=== PATIENT | male | born 1970 | race Hispanic/Latino ===

== ENCOUNTER 2016-06-03 03:47 | Emergency (ER) ==
--- NOTE | 2016-06-03 03:52 | PROVIDER DOCUMENTATION ---
HPI-Respiratory General - General Stated Complaint: SOB,B/P ISSUES Time Seen by Provider: 06/03/16 03:50 Source: patient Unable to obtain history due to:: urgency Allergies/Adverse Reactions: Patient Allergies Allergy/AdvReac Type Severity Reaction Status Date / Time No Known Allergies Allergy Verified 06/03/16 03:58 Home Medications: Home Medication List Medication Instructions Recorded Confirmed Last Taken Type Prednisone 20 mg PO BID #10 tablet 06/03/16 Unknown Rx Sulfamethoxazole/Trimethoprim 2 each PO BID #40 tablet 06/03/16 Unknown Rx [Bactrim Ds Tablet] - History of Present Illness-Resp Quality of Pain: reports: aching Severity in ED: reports: mild Onset/Duration: reports: just prior to arrival Timing: reports: improving Context: reports: out of meds Exposure: reports: unknown cause Cough Quality/Degree: reports: mild Current Respiratory Medication Therapy: Initiated see nurses note Modifying Factors: improves with: nothing Similar Symptoms Previously?: Yes Recently seen or treated by another doctor?: Yes Review of Systems - Adult - REVIEW OF SYSTEMS - ADULT Constitutional: reports: no symptoms reported Eyes: reports: no symptoms reported Ears, Nose, Mouth & Throat: reports: no symptoms reported Cardiovascular: reports: no symptoms reported Respiratory: reports: no symptoms reported Gastrointestinal: reports: no symptoms reported Genitourinary: reports: no symptoms reported Musculoskeletal: reports: no symptoms reported Integumentary: reports: no symptoms reported Neurological: reports: no symptoms reported Psychiatric: reports: no symptoms reported Endocrine: reports: no symptoms reported Hematologic/Lymphatic: reports: no symptoms reported Allergic/Immunologic: reports: no symptoms reported All Other Systems: Reviewed and Negative Past History - Adult - PAST MEDICAL HISTORY-ADULT Review of Records: reports: Old Records Reviewed, Nursing Assessment Review, Medications Reviewed, Social history reviewed & non-contributory. Major Childhood Illnesses: reports: denies history Cardiovascular: reports: denies history Respiratory: reports: denies history Gastrointestinal: reports: denies history Obstetrical/Gynecological: reports: denies history Genitourinary: reports: denies history Musculoskeletal: reports: denies history Neurological: reports: denies history Endocrine/Immune: reports: denies history Other Conditions: reports: denies history - FAMILY HISTORY Family History: reviewed, not pertinent Physical Exam-General - PHYSICAL EXAM-ADULT Initial Vital Signs Reviewed: Yes - CONSTITUTIONAL General Appearance: appears well - EYES Eyes: PERRL/EOMI - HEAD, EARS, NOSE, MOUTH & THROAT HENMT: normocephalic/atraumatic - NECK Neck: non-tender - RESPIRATORY Respiratory: chest non-tender - CARDIOVASCULAR Cardiovascular: normal peripheral pulses - GASTROINTESTINAL (ABDOMEN) Abdominal Exam: normal bowel sounds - GENITOURINARY Male Genitalia: deferred Rectal Exam: deferred Hemoccult Exam: deferred - LYMPHATIC Lymphatic: no adenopathy - MUSCULOSKELETAL Back Exam: normal inspection Extremity: normal range of motion - SKIN Integumentary: normal color - 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
[2016-06-03 04:08] LABS: MANUAL DIFF NEEDED? NO
[2016-06-03] MEDS ORDERED: LABETALOL IV ONE (04:09)
[2016-06-03 04:27] LABS: BASO% 0.2 % (0.0-0.8); EOS# 0.35 X1000 (0.0-0.7); EOS% 5.3 % (0.0-10.0); HEMATOCRIT 43.4 % (42.0-52.0); HEMOGLOBIN 15.5 g/dL (14.0-18.0); IMM GRAN# 0.01 X1000 (0.0-0.04); IMM GRAN% 0.2 % (0.0-0.5); LYMPH# 3.05 X1000 (1.2-3.4); LYMPH% 45.8 % (20.5-51.1); MCH 30.3 PG (27-31); MCHC 35.7 g/dL (33-37); MCV 84.9 FL (81-99); MONO# 0.54 X1000 (0.11-0.59); MONO% 8.1 % (1.7-9.3); MPV 8.8 FL (7.4-10.4); NEUT% 40.4 % (42.2-75.2); PLT 243 X1000 (130-400); RBC 5.11 XMIL (4.7-6.1)
[2016-06-03 04:34] LABS: AGAP 16; ALBUMIN 4.6 g/dL (3.5-5.0); ALKALINE PHOSPHATASE 49 U/L (32-122); BUN 11 mg/dL (8-22); CALCIUM 9.4 mg/dL (8.8-10.2); CHLORIDE 101 mmol/L (98-107); CK PROFILE 116 U/L (24-204); COSMO 276; GOT 18 U/L (10-34); GPT 26 U/L (10-44); POTASSIUM 3.4 mmol/L (3.5-5.1); SODIUM 138 mmol/L (136-145); TCO2 21 mmol/L (25-35); TOTAL PROTEIN 7.4 g/dL (6.3-8.3)
[2016-06-03 04:56] LABS: INR 0.83 (0.86-1.15); PROTIME 11.7 Seconds (12.1-15.5); PTT PL 29.9 Seconds (22.6-43.9)
[2016-06-03 05:16] VITALS: BP 161/97
--- NOTE | 2016-06-03 06:07 | EKG Report ---
Test Performed on : 06/03/2016 03:03:43 AM Test Reason : CHEST PAIN Blood Pressure : / mmHG Vent. Rate : 073 BPM Atrial Rate : 073 BPM P-R Int : 152 ms QRS Dur : 090 ms QT Int : 394 ms P-R-T Axes : 044 024 067 degrees QTc Int : 434 ms Normal sinus rhythm. Nonspecific T wave abnormality Abnormal ECG No previous ECGs available Unconfirmed Result
--- NOTE | 2016-06-03 08:25 | Diag Imaging Result Document ---
PROCEDURE NAME: CHEST-2 VIEWS - 06/03/2016 FRONTAL AND LATERAL CHEST, TWO VIEWS: FINDINGS: The lungs are well expanded. The heart is not enlarged. The vessels are not distended. No pneumonia. No pleural effusions. No free air beneath the diaphragm. IMPRESSION: No acute abnormality.
--- NOTE | 2016-06-03 08:44 | Diag Imaging Result Document ---
PROCEDURE NAME: HEAD W/O CONTRAST - 06/03/2016 CT BRAIN WITHOUT CONTRAST: TECHNIQUE: Dose-reduction protocol. FINDINGS: No parenchymal hemorrhage. No epidural or subdural hematoma. No subarachnoid hemorrhage. No mass identified on this noncontrasted exam. No hydrocephalus. Minimal mucus in the ethmoid sinuses. IMPRESSION: No hemorrhage. Negative brain CT without contrast. A preliminary report was given at 4:57 a.m.
== END 2016-06-03 05:45 | disposition home or self-care (01) ==
LOC: P.ED 03:47
DX: J32.9 Chronic sinusitis, unspecified (principal); R06.02 Shortness of breath
CPT/HCPCS: 70450; 71020; 80053; 82550; 83735; 83880; 84484; 85025; 85610; 85730; 93005; 96374